=== PATIENT | female | born 1965 | race Caucasian/White ===

== ENCOUNTER 2017-08-04 02:41 | Emergency (ER) | payer MEDICARE, MEDICAID ==
[~2017-08-04] VITALS: Ht 149.9 cm; Wt 58.0 kg
[~2017-08-04 02:41] MED LIST: HYDROXYZINE; KLOR-CON; LASIX; LISINOPRIL; LOMOTIL; MAGNESIUM; MECLIZINE; NEXIUM; PAXIL; PROCHLORPERAZINE; PROMETHAZINE; RENA-VITE; ROCALTROL
[2017-08-04 02:48] VITALS: BP 134/77
== END 2017-08-04 03:22 | disposition left against medical advice (07) ==
LOC: ER 02:50
DX: Z53.21 Procedure and treatment not carried out due to patient leaving prior to being seen by health care provider (principal)